=== PATIENT | female | born 1980 | race African-American/Black ===

== ENCOUNTER 2019-01-27 00:17 | Emergency (ER) | payer SELFPAY ==
[~2019-01-27] VITALS: Ht 170.2 cm; Wt 69.0 kg
[2019-01-27] MEDS ORDERED: HYDROCODONE/ACETAMINOPHEN 10/325MG TABLET PO ONE (02:30)
[2019-01-27] MEDS ORDERED: KETOROLAC 60MG/2ML VIAL IM ONE (02:30)
[2019-01-27 03:58] VITALS: BP 148/95
== END 2019-01-27 04:01 | disposition home or self-care (01) ==
LOC: ER 00:17
DX: K04.7 Periapical abscess without sinus (principal)
CPT/HCPCS: 81025; 96372; 99283; J1885